=== PATIENT | female | born 1995 | race Caucasian/White ===

== ENCOUNTER 2018-05-06 12:10 | Emergency (ER) | END 2018-05-06 14:36 | disposition home or self-care (01) ==

== ENCOUNTER 2018-11-15 17:12 | Inpatient (IN) | payer OTHER ==
[~2018-11-15 17:12] MED LIST: ACET325T33 PO; FER325 PO; PREN1TAB74 PO
[2018-11-15] MEDS ORDERED: OXYTOCIN 30 UNITS/LR 500 ML IV SCH ×2 (17:30)
[2018-11-15] MEDS ORDERED: LIDOCAINE 1% (MPF) 30 ML INJ INJ PRN (17:30)
[2018-11-15] MEDS ORDERED: METHYLERGONOVINE 0.2 MG INJ IM PRN (17:30)
[2018-11-15] MEDS ORDERED: BUTORPHANOL 2 MG INJ IV PRN (17:30)
[2018-11-15] MEDS ORDERED: IBUPROFEN 600 MG TAB PO PRN (17:30)
[2018-11-15] MEDS ORDERED: CARBOPROST 250 MCG INJ IM PRN (17:30)
[2018-11-15] MEDS ORDERED: MISOPROSTOL 200 MCG TAB PR PRN (17:30)
[2018-11-15] MEDS ORDERED: OXYTOCIN 30 UNITS/LR 500 ML IV PRN (17:30)
[2018-11-15] MEDS ORDERED: AMPICILLIN 2 GM/NS (PMX) 100 ML IVPB ONE (18:00)
[2018-11-15] MEDS: LACTATED RINGER'S 1,000 ML IV SCH (18:01)
[2018-11-15] MEDS ORDERED: MISOPROSTOL 50 MCG CAPSULE PO SCH (20:00)
[2018-11-15] MEDS ORDERED: AMPICILLIN 1 GM/NS (PMX) 50 ML IVPB SCH (21:00)
[2018-11-16] MEDS: LACTATED RINGER'S 1,000 ML IV SCH (00:16)
[2018-11-16] MEDS ORDERED: MINERAL OIL LIGHT 10 ML VIAL ONE (00:45)
[2018-11-16] MEDS ORDERED: OXYTOCIN 30 UNITS/LR 500 ML IV SCH (02:51)
--- NOTE | 2018-11-16 02:51 | LDN ---
Date/Time of Note Date/Time of Note DATE: 11/16/18 TIME: 02:49 Delivery Summary Weeks of Gestation 40 Placenta Delivered: Spontaneously Meconium: none Laceration repair: left labia minoral laceration repair wtih 3-0 chromic Anesthesia type: Local Estimated blood loss: 150 Sponge & Needle done & correct: Yes All needle counts correct: Yes Any foreign bodies felt in the: No Infant Delivery Information Sex Sex: male Apgars 1 Minute: 9 5 Minute: 9 Suctioning Nose & mouth suctioned at vito: No Delee suction performed: No Umbilical Cord Umbilical cord with: 3 Vessels Cord presentations: no nuchal cord Cord Blood was obtained: Yes RAYSA OLIVARES MD Nov 16, 2018 02:51
[2018-11-16] MEDS ORDERED: LANOLIN HPA 1 PKT TOP PRN (03:00)
[2018-11-16] MEDS ORDERED: WITCH HAZEL/GLYCERIN PAD PR PRN (03:00)
[2018-11-16] MEDS ORDERED: BENZOCAINE 20% 56 ML SPRAY TOP PRN (03:00)
[2018-11-16] MEDS ORDERED: CARBOPROST 250 MCG INJ IM PRN (03:00)
[2018-11-16] MEDS ORDERED: ONDANSETRON 4 MG INJ IV PRN (03:00)
[2018-11-16] MEDS ORDERED: MISOPROSTOL 200 MCG TAB PR PRN (03:00)
[2018-11-16] MEDS ORDERED: OXYTOCIN 30 UNITS/LR 500 ML IV PRN (03:00)
[2018-11-16] MEDS ORDERED: SENNA/DOCUSATE NA (8.6MG/50MG) TAB PO PRN (03:00)
[2018-11-16] MEDS ORDERED: METHYLERGONOVINE 0.2 MG INJ IM PRN (03:00)
[2018-11-16] MEDS ORDERED: DIPHENHYDRAMINE 25 MG CAP PO PRN (03:00)
[2018-11-16] MEDS ORDERED: NACL 0.9% 3 ML SYG IV SCH (03:00)
[2018-11-16] MEDS ORDERED: OXYCODONE/ASPIRIN (4.88/325) TAB PO PRN ×2 (03:00)
[2018-11-16 03:30] VITALS: BP 106/76; RESP 18
--- NOTE | 2018-11-16 06:12 | PREOPHP ---
DATE OF ADMISSION: 11/15/2018 HISTORY OF PRESENT ILLNESS: Ms. Michelle Peters is a 23-year-old 3, para 1, EDC 11/15/2018 in trauterine at 40 weeks' gestational age, was sent from clinic today for induction of labor. The patient was to have a root canal; however, her dentist would not perform the root canal until s he had her delivery. She denies any headache, nausea, vomiting, shortness of breath, or visual lazcano es. Her care took place at [facility]. PAST MEDICAL HISTORY: None. MEDICATIONS: vitamins. PAST SURGICAL HISTORY: None. OBSTETRICAL HISTORY: Vaginal delivery x1, missed AB x1. GYNECOLOGIC HISTORY: Twelve, regular 3 to 4 days. Denies any sexually transmitted disease. Sexuall y active with one partner. SOCIAL HISTORY: Denies any smoking, drugs or alcohol. FAMILY HISTORY: None. REVIEW OF SYSTEMS: All within normal except in history of present illness. PHYSICAL EXAMINATION: HEENT: Within normal. LUNGS: CTA. CARDIOVASCULAR: S1, S2, regular rhythm. ABDOMEN: Gravid, nontender. Negative CVA bilateral. EXTREMITIES: Negative edema. No calf tenderness. PELVIC: Vaginal exam 1 to 2 cm dilated, 50% effaced, -3 station. heart tracing category 1. T oco: Occasional contractions. ASSESSMENT: Intrauterine at 40 weeks' gestational age, admitted for induction. PLAN: Start with Cytotec for cervical ripening followed by Pitocin. Risks, benefits and alternative s explained. All questions were answered. Dictated By: RAYSA CARRASQUILLO/SANGITA Conf#: [id number] DID#: [id number]
[2018-11-16] MEDS: IBUPROFEN 600 MG TAB PO SCH ×4 (06:23→23:51)
[2018-11-16 07:45] VITALS: BP 111/59; PULSE 88; RESP 18
[2018-11-16] MEDS ORDERED: VITAMIN A & D 5 GM OINT PACKET TOP ONE (10:18)
[2018-11-16] MEDS: SENNA/DOCUSATE NA (8.6MG/50MG) TAB PO SCH ×2 (10:31→22:24)
[2018-11-16 16:00] VITALS: BP 103/80; PULSE 90; RESP 19
[2018-11-16 20:20] VITALS: BP 97/61; PULSE 83; RESP 19
[2018-11-17 04:00] VITALS: BP 98/57; PULSE 76; RESP 18
[2018-11-17] MEDS: IBUPROFEN 600 MG TAB PO SCH ×2 (06:30→12:14)
[2018-11-17 07:30] VITALS: BP 108/60; PULSE 84; RESP 19
[2018-11-17] MEDS: SENNA/DOCUSATE NA (8.6MG/50MG) TAB PO SCH (10:23)
--- NOTE | 2018-11-17 10:36 | PD.PPDC ---
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 Discharge Instruction Condition [id number] Patient Condition: Zlure4g Good Diet [id number] Diet: Lsnat3w Resume Regular Diet Activity/Restrictions Jysdt4Td Activity: Mxznp2f Normal Activity May Shower [id number] Restrictions: Icmpp3v No Exercising No Lifting No Driving No Sexual Activity Nothing in the Vagina No Collbran No Tampons, douche Follow-up Follow-up with Physician: 3, Week/Weeks Return to clinic for [id number] FLAP CURER Instructions: Xpitw0x Fever greater than 101 Chills Worsening abdominal pain Excessive Vaginal Bleeding More than 2 pads per hour Unable to tolerate diet [id number] OB Instructions: Ilgco9k Breast Tenderness Depression Blurried Vision Headache [id number] Surgical Instructions: [id number] Incisional Drainage Incisional Redness RAYSA OLIVARES MD Nov 17, 2018 10:36
--- NOTE | 2018-11-17 10:40 | DS ---
Date/Time of Note Date/Time of Note DATE: 11/17/18 TIME: 10:39 Obstetrical Discharge Record Final Diagnosis Final Diagnosis: Term delivered Vaginal Delivery Obstetrical Delivery: Spontaneous Condition on Discharge Physical Assessment Last Vitals: stable afebile Voiding: Yes Bowel Movement: Yes Breast: Soft, non-tender, Filling Fundus: Firm Calf Tenderness: No Patient Condition: Fair RAYSA OLIVARES MD Nov 17, 2018 10:40
== END 2018-11-17 16:00 | disposition home or self-care (01) | DRG 807 ==
LOC: L-D 17:12 → PP1 11-16 03:30 → EDSTATUS 11-18 17:08
PROVIDERS: ADMIT Obstetrics & Gynecology; ATTEND Obstetrics & Gynecology
PROC: 10E0XZZ Delivery of Products of Conception, External Approach (ICD-10-PCS; principal; 2018-11-16)
PROC: 0UQMXZZ Repair Vulva, External Approach (ICD-10-PCS; 2018-11-16)
DX: O70.0 First degree perineal laceration during delivery (principal); Z37.0 Single live birth; Z3A.40 40 weeks gestation of pregnancy; Z23 Encounter for immunization
CPT/HCPCS: 76815; 76818; 85025; 85610; 85730; 86592; 86850; 86900; 86901; 87340; 90686; J0290; J0595; J2590; J7120